=== PATIENT | female | born 1995 | race Caucasian/White ===

== ENCOUNTER 2020-01-29 06:31 | Inpatient (IN) ==
[2020-01-29] MEDS ORDERED: D5 1/2 NS 1000 ML 1,000 ML IV ONE (06:43)
[2020-01-29] MEDS ORDERED: PITOCIN ONE ×2 (06:43→20:30)
[2020-01-29] MEDS ORDERED: BETADINE SOLN ONE (06:44)
[2020-01-29] MEDS: D5 1/2 NS 1000 ML 1,000 ML IV SCH (07:05)
[2020-01-29] MEDS ORDERED: PHENERGAN INJ 25 MG IM PRN ×2 (07:07→23:24)
[2020-01-29] MEDS ORDERED: MORPHINE SULFATE INJ 2 MG INJ IVP PRN (07:07)
[2020-01-29] MEDS ORDERED: REGLAN INJ 10 MG VIAL IVP PRN (07:07)
[2020-01-29] MEDS ORDERED: D5LR 1L W PITOCIN 10 UNITS/L 10 UNITS/1,000 ML BAG IV PRN (07:07)
[2020-01-29] MEDS ORDERED: PITOCIN IVP ONE (07:07)
[2020-01-29] MEDS: D5LR 1L W PITOCIN 10 UNITS/L 10 UNITS/1,000 ML BAG IV ONE ×2 (07:20→07:46)
[2020-01-29 07:47] LABS: BASOPHILS % (AUTO) 0.3 % (0.2-1.0); EOSINOPHILS % (AUTO) 0.3 % (0.9-2.9); HEMATOCRIT 27.7 % (36.0-47.0); HEMOGLOBIN 8.9 g/dL (12.0-16.0); LYMPHOCYTES # (AUTO) 1.5 X10^3/uL (1.3-2.9); LYMPHOCYTES % (AUTO) 15.2 % (21.0-51.0); MEAN CORPUSCULAR HEMOGLOBIN 26.5 pg (27.0-34.0); MEAN CORPUSCULAR HGB CONC 32.2 g/dL (33.0-35.0); MEAN CORPUSCULAR VOLUME 82.1 fL (80.0-100.0); MEAN PLATELET VOLUME 8.2 fL (7.4-11.0); MONOCYTES # (AUTO) 0.8 x10^3/uL (0.3-0.8); MONOCYTES % (AUTO) 7.6 % (0.0-13.0); NEUTROPHILS # (AUTO) 7.8 x10^3/uL (2.2-4.8); NEUTROPHILS % (AUTO) 76.6 % (42.0-75.0); PLATELET COUNT 299 X10^3/uL (150.0-450.0); RED BLOOD COUNT 3.37 X10^6/uL (3.5-5.4); RED CELL DISTRIBUTION WIDTH 16.8 % (11.6-16.5); WHITE BLOOD COUNT 10.1 X10^3/uL (3.6-10.0)
[2020-01-29 07:48] LABS: BLOOD UREA NITROGEN 11 mg/dL (7-18); CALCIUM 8.4 mg/dL (8.5-10.1); CARBON DIOXIDE 23.8 mmol/L (21-32); CHLORIDE 102 mmol/L (98-107); COR NA(FOR HYPERGLY) 135 mmol/L (136-145); CREATININE 0.75 mg/dL (0.55-1.02); SODIUM 135 mmol/L (136-145); eGFR NON BLACK RACES > 60 (>60)
[2020-01-29] MEDS ORDERED: D5LR 1L W PITOCIN 10 UNITS/L 10 UNITS/1,000 ML BAG IV ONE (08:42)
[2020-01-29] MEDS ORDERED: D5 1/2 NS 1L W PITOCIN 20 UNITS/L 20 UNITS/1,000 ML BAG IV ONE (08:43)
[2020-01-29 10:05] LABS: BILIRUBIN,URINE NEGATIVE (NEGATIVE); BLOOD/HEMOGLOBIN,URINE 1+ (NEGATIVE); GLUCOSE, URINE NEGATIVE (NEGATIVE); KETONES,URINE NEGATIVE (NEGATIVE); LEUKOCYTE ESTERASE ,URINE 2+ (NEGATIVE); NITRITES,URINE NEGATIVE (NEGATIVE); PROTEIN,URINE 1+ (NEGATIVE); UROBILINOGEN,URINE NORMAL (NORMAL)
[2020-01-29 10:14] LABS: APPEARANCE,URINE CLEAR (CLEAR); COLOR,URINE YELLOW (YELLOW)
[2020-01-29 10:15] LABS: BACTERIA,URINE 1+ /HPF (NEGATIVE); SQUAMOUS EPITHELIAL CELL,UR FEW /HPF (NEGATIVE)
[2020-01-29] MEDS: STADOL INJ IVP PRN ×3 (12:48→18:23)
[2020-01-29] MEDS: STADOL INJ ONE ×2 (13:09→13:13)
[2020-01-29] MEDS ORDERED: STADOL INJ ONE ×2 (15:32→18:27)
[2020-01-29] MEDS ORDERED: FENTANYL INJ 100 mcg ONE (18:43)
[2020-01-29] MEDS ORDERED: FENTANYL 2 mcg/mL-ROPIV 0.1%-NS EPIDURAL 200 ML EPI ONE (18:44)
[2020-01-29] MEDS ORDERED: LR 1000 ML IV 1,000 ML IV ONE (18:44)
[2020-01-29] MEDS ORDERED: D5 LR 1000 ML 1,000 ML IV ONE (20:30)
[2020-01-29] MEDS ORDERED: XYLOCAINE 2 % (PLAIN) ONE (23:12)
[2020-01-30] MEDS ORDERED: MOTRIN TAB 800 MG PO PRN (00:15)
[2020-01-30] MEDS ORDERED: MILK OF MAGNESIA PO PRN (00:15)
[2020-01-30] MEDS ORDERED: AMBIEN PO PRN (00:15)
[2020-01-30] MEDS ORDERED: PERCOCET TAB 5/325 MG PO PRN (00:24)
[2020-01-30] MEDS: D5 1/2 NS 1000 ML 1,000 ML IV SCH ×6 (00:45→20:48)
[2020-01-30] MEDS: D5 1/2 NS 1000 ML 1,000 ML with PITOCIN 20 UNITS IV SCH ×6 (00:45→18:13)
[2020-01-30] MEDS: DERMOPLAST PAIN RELIEF SPRAY TOP PRN ×2 (01:11→14:14)
[2020-01-30] MEDS: DILAUDID INJ IVP PRN ×2 (01:29→21:29)
[2020-01-30] MEDS ORDERED: BETADINE SOLN ONE (04:13)
[2020-01-30] MEDS: MOTRIN TAB 800 MG PO PRN (04:45)
[2020-01-30 06:26] LABS: HEMATOCRIT 24.1 % (36.0-47.0); HEMOGLOBIN 7.8 g/dL (12.0-16.0)
[2020-01-30] MEDS: NS 100 ML IV 100 ML with VENOFER 400 MG IV SCH ×2 (09:13)
[2020-01-30] MEDS: PRENATAL PLUS PO SCH (09:13)
[2020-01-31] MEDS: D5 1/2 NS 1000 ML 1,000 ML IV SCH ×3 (00:14→09:27)
[2020-01-31] MEDS: DILAUDID INJ IVP PRN (03:10)
[2020-01-31] MEDS: MOTRIN TAB 800 MG PO PRN (06:30)
[2020-01-31] MEDS: PRENATAL PLUS PO SCH (08:44)
[2020-01-31] MEDS ORDERED: DILAUDID INJ IVP PRN (09:00)
[2020-01-31] MEDS: NS 100 ML IV 100 ML with VENOFER 400 MG IV SCH ×2 (09:27)
[2020-01-31] MEDS ORDERED: ADACEL or BOOSTRIX TDaP VACCINE IM ONE ×2 (12:05→12:09)
[2020-01-31 13:14] VITALS: BP 104/64
== END 2020-01-31 14:30 | disposition home or self-care (01) | DRG 806 ==
LOC: LD 06:31 → MED/SURG 01-30 00:51
PROVIDERS: ADMIT Obstetrics & Gynecology Obstetrics; ATTEND Obstetrics & Gynecology Obstetrics
CPT/HCPCS: 36415; 80048; 81001; 82607; 82728; 82746; 83540; 84466; 85014; 85018; 85025; 86592; 86850; 86900; 86901; 87086; 87088; 87186; 90715; A4216; A4222; J0595; J1170; J1756; J2590; J3010; J7050; J7120; J7121; S0197; S5010